=== PATIENT | female | born 1975 | race Caucasian/White ===

== ENCOUNTER → 2022-01-22 00:42 | Outpatient (CLI) | payer BC, SELFPAY ==
[2022-01-22 11:36] LABS: SARS-CoV-2 RNA PCR Negative
== END ==
PROVIDERS: PCP Family Medicine; Visit Provider Internal Medicine Gastroenterology
DX: Z01.812 Encounter for preprocedural laboratory examination (principal); Z20.822 Contact with and (suspected) exposure to COVID-19
CPT/HCPCS: C9803; U0003; U0005

== ENCOUNTER 2022-01-25 01:13 | Day surgery (SDC) | payer BC, SELFPAY ==
[2022-01-11 08:50] VITALS: BMI 36.6
[2022-01-25 08:55] VITALS: BP 137/80; PULSE 97; RESP 18; TEMP 36.4; O2SAT 97; BMI 35.4
[2022-01-25] MEDS: LACTATED RINGERS 1,000 ML 150 ML IV CONT (09:10)
--- NOTE | 2022-01-25 09:15 | WPDHPUPDATE1 ---
History and Physical Update Update Date/Time: 01/25/22 09:15 History and Physical has been reviewed, including an updated exam of the patient. There are NO changes in the patient's condition. Risks, benefits, and alternatives have been discussed and questions answered. Patient agrees to proceed with procedure.
--- NOTE | 2022-01-25 09:35 | WPDANESEPPF ---
Anes - Initial Pre Proc Eval Procedure: Operation Date: 01/25/22 10:00 Proposed Procedures p Colonoscopy - Kelby Marquez MD Date/Time: 01/25/22 09:35 Surgeon: Kelby Marquez MD Pre Op Diagnosis: Rectal bleeding Patient Data Age: 46 Gender: F Height: 1.68 m Weight: 99.4 kg Last Vital Signs Temp 97.6 F 01/25/22 08:55 Pulse 97 01/25/22 08:55 Resp 18 01/25/22 08:55 BP 137/80 01/25/22 08:55 Pulse Ox 97 01/25/22 08:55 Allergies Allergy/AdvReac Type Severity Reaction Status Date / Time adhesive Allergy Unknown Rash Verified 01/25/22 09:02 Home Medications Medication Instructions Recorded Confirmed Type dextroamphetamine-amphetamine 20 20 mg PO DAILY 01/09/22 01/25/22 History mg tablet duloxetine 30 mg capsule,delayed 30 mg PO DAILY 01/09/22 01/25/22 History release duloxetine 60 mg capsule,delayed 60 mg PO DAILY 01/09/22 01/25/22 History release hydrocodone 5 mg-acetaminophen 325 1 tablet PO Q8H PRN 01/09/22 01/25/22 History mg tablet zolpidem 10 mg tablet 10 mg PO QHS PRN 01/09/22 01/25/22 History Patient hx anesthesia problems: none Family hx anesthesia problems: none Results Review: All pre-operative results and documents have been reviewed as part of the pre-operative evaluation. [facility] Surgical History Surgical History (Updated 01/09/22 @ 10:54 by Glenys Jackman MA) Tubal ligation status Family History Family History (Updated 01/09/22 @ 10:56 by Glenys Jackman MA) Father Alcohol abuse Hypertension Heart disease Mother Breast cancer Hypertension Cerebrovascular accident Social History Social History (Updated 01/09/22 @ 10:53 by Glenys Jackman MA) Years smoked: 10 Smoking status: Former smoker Tobacco type: cigarettes Additional smoking assessment comments: 1 pack per week Alcohol intake: never Alcohol use details: social Substance use: never Substance use type: does not use Living arrangements: with family Spiritual care concerns: No Anes - Eval Final PreProcedure Day of Procedure 01/25/22 09:35 Patient weight: obese Heart: regular rate and rhythm Lungs: clear to auscultation Airway: Mallampati scale class II Neurological: alert and oriented Last oral intake: >/= 8 hours ASA classification: II Emergent: no Anesthetic plan: proceed Anesthesia type and monitoring: general GIVS and standard monitoring Results Review: All pre-operative results and documents have been reviewed as part of the pre-operative evaluation. Informed Consent: The patient's anesthetic plan and its attendant risks and benefits were discussed with the patient/family/POA. Questions were solicited and answers provided to the satisfaction of the patient/family/POA.
[2022-01-25 10:10] VITALS: BP 106/70; PULSE 90; RESP 20; O2SAT 97
[2022-01-25 10:20] VITALS: BP 120/78; PULSE 86; RESP 20; O2SAT 100
[2022-01-25 10:30] VITALS: BP 116/83; PULSE 80; RESP 14; O2SAT 100
== END 2022-01-25 10:36 | disposition home or self-care (01) ==
PROVIDERS: PCP Family Medicine; Visit Provider Internal Medicine Gastroenterology
PROC: 0DJD8ZZ Inspection of Lower Intestinal Tract, Via Natural or Artificial Opening Endoscopic (ICD-10-PCS; CPT 45378; principal; 2022-01-25 10:00)
DX: Z12.11 Encounter for screening for malignant neoplasm of colon (principal); K62.5 Hemorrhage of anus and rectum; K64.8 Other hemorrhoids; D12.3 Benign neoplasm of transverse colon; Z87.891 Personal history of nicotine dependence; E66.9 Obesity, unspecified; Z68.35 Body mass index [BMI] 35.0-35.9, adult
CPT/HCPCS: 45385; 88305; J2704; J7120

== ENCOUNTER 2022-02-05 09:11 | Outpatient (CLI) | payer BC, SELFPAY ==
--- NOTE | ~2022-02-05 | MMUS_ITS ---
EXAMINATION: MM diag tito implant BI w soy, US breast RT limited HISTORY: Palpable right breast lump TECHNIQUE: Bilateral full field and right coned 3-D tomosynthesis images were performed and syntheti c 2-D images were generated. CAD analysis was submitted and interpreted. High resolution upper outer quadrant right breast ultrasound was performed. COMPARISON: None BREAST PARENCHYMAL COMPOSITION: The breasts are heterogeneously dense, which may obscure small masses . FINDINGS: MAMMOGRAPHIC FINDINGS: Status post bilateral augmentation mammoplasty. There is a 1.5 cm circumscribed opacity in the upper outer quadrant of the right breast near midline. No other suspicious mass or any architectural distortion, malignant calcification, skin thickening or retraction of either breast is noted. ULTRASOUND: 12:00 6 cm from nipple: There is a circumscribed sonolucency with through transmission posterior enha ncement, no internal vascularity, consistent with cyst, measuring 1.1 x 1.5 cm. IMPRESSION: 1. Benign 1.5 cm right breast cysts and approximately 12:00 2. Routine mammographic screening is recommended BI-RADS Category 2: Benign finding(s). Reviewed, dictated and finalized at location A. IMPRESSION: 1. Benign 1.5 cm right breast cysts and approximately 12:00 2. Routine mammographic screening is recommended BI-RADS Category 2: Benign finding(s).
== END 2022-02-05 09:12 ==
LOC: MICIMG 09:12
PROVIDERS: PCP Family Medicine; Visit Provider Nurse Practitioner
DX: N63.10 Unspecified lump in the right breast, unspecified quadrant (principal)
CPT/HCPCS: 76642; 77062; 77066; G0279